=== PATIENT | female | born 1975 | race Caucasian/White ===

== ENCOUNTER 2023-02-26 16:21 | Emergency (ER) | payer MEDICARE, SELFPAY ==
[2023-02-26 16:22] VITALS: BP 150/79; PULSE 87; RESP 18; TEMP 36.3; O2SAT 100; BMI 30.2
--- NOTE | 2023-02-26 16:53 | EDS_ITS ---
HPI History of Present Illness Chief Complaint: Fatigue Narrative Narrative: 48-year-old female presenting with fatigue. 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 She states that she did tell her primary care physician about this and felt like she was having some sort of allergic reaction to the medication. She describes this as swelling all over. She was never evaluated. She did have some blood work done at the beginning of November prior to stopping the medication and her TSH, T4 was normal. She also states that she has a history of iron deficiency anemia. She states that over the last 2 weeks she is tried to call her primary care physician Dr. Montgomery. Her primary care is in [place]. She gets her blood work done through [facility]. She states she just wanted to get blood work checked today because she was in town working. She states that she does actually have Synthroid left and a refill but has not opted to just start taking it again. [facility] Medical History Anemia Cystic mastopathy Lenin's disease Physical exam, pre-employment Home Medications NK 02/26/23 [History Last Taken Unknown] Surgical History History of augmentation of both breasts Social History Smoking Status: Never smoker ROS ROS ED ROS Narrative Generalized fatigue Constitutional Constitutional ED: Denies chills, fever(s) or sweats Eyes Eyes: Denies blurry vision or change in vision ENT ENT ED: Denies ear pain or sore throat Cardiovascular Cardiovascular: Denies chest pain, palpitations or racing heartbeat Respiratory/Chest Respiratory/Chest: Denies cough, dyspnea or sputum Gastrointestinal Gastrointestinal: Denies abdominal pain, constipation, diarrhea, nausea or vomiting Genitourinary Genitourinary ED: Denies dysuria, hematuria or urinary frequency Musculoskeletal Musculoskeletal: Denies arthralgias, myalgias or neck pain Integumentary Denies abscess, Abrasions or rash Neurologic Neurologic: Denies headache(s), paresthesias or weakness Psychiatric Psychiatric: Denies anxiety, depression, suicidal ideation or suicidal thoughts Endocrine Endocrinology: Denies polydipsia or polyuria EXAM Physical Exam Const Vital Signs: 02/26/23 16:22 02/26/23 16:30 Temperature 97.4 F L Temperature Source Temporal Pulse Rate 87 Respiratory Rate 18 Respiratory Effort Normal Non-Labored Blood Pressure 150/79 H Blood Pressure Mean 102 Pulse Ox 100 Oxygen Delivery Method Room Air Positive well nourished General Appearance ED: NAD; Negative for pallor HEENT Reports moist mucous membranes Eyes PERRL and EOMs intact bilaterally General Eye ED: Negative for pale conjunctiva or scleral icterus Resp normal respiratory effort and clear to auscultation bilaterally Auscultation: Negative for rales, rhonchi or wheezes Cardio regular rate and regular rhythm Neuro oriented x3 and CN's II-XII intact bilaterally Sensorium / Orientation: alert Psych mental status grossly normal Skin no rashes or lesions noted and no wounds General Skin Exam: Negative for jaundice or pallor MDM MDM MDM Narrative Medical decision making narrative: Patient presenting for generalized fatigue. She is well-appearing with normal vital signs. She states she had Synthroid but stopped taking it because she was concerned about some swelling all over. She has not seen her primary care physician because she states the primary has not called her back. She states she has refills of the Synthroid and would restart it if her levels were low. She also states she has a history of chronic iron deficiency anemia. CBC to assess white blood cell count, hemoglobin, platelet, differential. CMP to assess liver function, renal function, glucose, electrolytes, anion gap. TSH, T3, T4 to assess thyroid levels. hCG was assess for . Urinalysis will be obtained as well due to patient's fatigue. CBC shows a normal hemoglobin of 13.3, hematocrit 40.0, platelets 286. White blood cell count normal at 7.4. Renal function and electrolytes within normal limits with exception of potassium 3.4. LFTs are normal. TSH is elevated at 4.81 however T3 and T4 are normal. hCG is negative. Urinalysis negative for infection. I recommended to the patient that she restart her Synthroid. She is to follow-up with her primary care physician as an outpatient. Return precautions are discussed. Impression: 1. Generalized weakness 2. Medical noncompliance 3. History of Lenin's Lab Data Attestation: I reviewed the patient's lab results. Labs: Laboratory Results - last 24 hr 02/26/23 02/26/23 02/26/23 16:50 16:50 16:50 WBC 7.4 RBC 4.20 Hgb 13.3 Hct 40.0 MCV 95.2 MCH 31.7 MCHC 33.3 RDW Std Deviation 45.2 H RDW Coeff of Phill 13.1 Plt Count 286 MPV 10.8 Immature Gran % (Auto) 0.300 Neut % (Auto) 60.1 Lymph % (Auto) 30.8 [place] % (Auto) 6.3 Eos % (Auto) 1.8 Baso % (Auto) 0.7 Absolute Neuts (auto) 4.4 Absolute Lymphs (auto) 2.27 Nucleated RBC % 0 Sodium 139 Potassium 3.4 L Chloride 104 Carbon Dioxide 26.0 Anion Gap 9 BUN 7 Creatinine 0.72 Estim Creat Clear Calc 84.31 Est GFR (MDRD) Af Amer 113 Est GFR (MDRD) Non-Af 93 BUN/Creatinine Ratio 9.7 L Glucose 101 Calcium 9.1 Total Bilirubin 0.70 AST 26 ALT 26 Alkaline Phosphatase 65 Total Protein 7.9 Albumin 4.0 Globulin 3.9 Albumin/Globulin Ratio 1.0 TSH 4.81 H Free T4 0.88 Free T3 pg/dL 2.5 HCG, Quant < 1 Urine Color Urine Clarity Urine pH Ur Specific [place] Urine Protein Urine Glucose (UA) Urine Ketones Urine Occult Blood Urine Nitrite Urine Bilirubin Urine Urobilinogen Ur Leukocyte Esterase Urine RBC Urine WBC Ur Squamous Epith Cells Amorphous Sediment Urine Bacteria Urine Mucus 02/26/23 16:55 WBC RBC Hgb Hct MCV MCH MCHC RDW Std Deviation RDW Coeff of Phill Plt Count MPV Immature Gran % (Auto) Neut % (Auto) Lymph % (Auto) [place] % (Auto) Eos % (Auto) Baso % (Auto) Absolute Neuts (auto) Absolute Lymphs (auto) Nucleated RBC % Sodium Potassium Chloride Carbon Dioxide Anion Gap BUN Creatinine Estim Creat Clear Calc Est GFR (MDRD) Af Amer Est GFR (MDRD) Non-Af BUN/Creatinine Ratio Glucose Calcium Total Bilirubin AST ALT Alkaline Phosphatase Total Protein Albumin Globulin Albumin/Globulin Ratio TSH Free T4 Free T3 pg/dL HCG, Quant Urine Color Yellow Urine Clarity Sl. Cloudy Urine pH 7.0 Ur Specific [place] 1.015 Urine Protein 15 H Urine Glucose (UA) Normal Urine Ketones Negative Urine Occult Blood 10 H Urine Nitrite Negative Urine Bilirubin Negative Urine Urobilinogen Normal Ur Leukocyte Esterase Negative Urine RBC 0-5 SEEN Urine WBC 0 SEEN Ur Squamous Epith Cells 0-5 SEEN Amorphous Sediment 1+ PHOS Urine Bacteria 0 SEEN Urine Mucus 0 SEEN Discharge Plan Triage Chief Complaint: Fatigue ED Provider: Amrit Ray Dx/Rx/DC Orders Instructions: ED Weakness (Uncertain Cause) Prescriptions: No Action NK Primary Care Provider: Isha Burris Referrals: Isha Burris MD [Primary Care Provider] - Disposition Disposition: Home, Self Care
[2023-02-26 17:00] LABS: Bacteria 0 SEEN /hpf (None Seen); Mucous, Urine 0 SEEN /hpf (<or=2+); White Blood Cells 0 SEEN /hpf (0-5)
[2023-02-26 17:01] LABS: Absolute Lymphocyte Count 2.27 X10^3/uL (0.83-4.51); Absolute Neutrophil Count 4.4 X10^3/uL (2.0-7.7); Basophil# 0.05 X10^3/uL; Basophil% 0.7 % (0-1); Eosinophil# 0.13 X10^3/uL; Eosinophils% 1.8 % (0-5); Hemoglobin 13.3 g/dL (12.0-15.0); Lymphocyte # 2.27 X10^3/ul (0.83-4.51); Lymphocyte % 30.8 % (19-41); Mean Corp Hgb Conc 33.3 g/dL (32-36); Mean Corpuscular Hgb 31.7 pg (27.0-32.0); Mean Corpuscular Volume 95.2 fL (81-99); Mean Platelet Vol. 10.8 fl (6.2-12.0); Monocyte# 0.46 X10^3/uL; Monocyte% 6.3 % (0-10); NRBC Flagged by Analyzer 0 % (0-5); Neutrophil # 4.43 X10^3/uL (2.7-7.7); Neutrophil % 60.1 % (47-70); Platelet Count 286 K/mm3 (150-450); RBC Distribution Width CV 13.1 % (11.6-14.6); RBC Distribution Width SD 45.2 fl (35.1-43.9); White Blood Count 7.4 K/mm3 (4.4-11.0)
[2023-02-26 17:05] LABS: Color, Urine Yellow (Yellow); Glucose, Dipstick Normal (Normal); Ketone-Dipstick Negative (Negative); Leukocyte Esterase-Dipstick Negative /ul (Negative); Nitrite-Dipstick Negative (Negative); Occult Blood-Urine 10 /ul (Negative); Protein-Dipstick 15 mg/dl (Negative); Specific Gravity, Urine 1.015 (1.002-1.030); Urine Bilirubin Dipstick Negative (Negative); Urine Clarity Sl. Cloudy (Clear); Urine Urobilinogen Normal (Normal)
[2023-02-26 17:16] LABS: Amorphous Sediment 1+ PHOS; Red Blood Cells-Urine 0-5 SEEN /hpf (0-5); Squamous Epithelial Cells - UA 0-5 SEEN /hpf (5-10)
[2023-02-26 17:22] LABS: hCG Titer Quant., Serum < 1 mIU/mL (1-3)
[2023-02-26 17:27] LABS: AST(SGOT) 26 U/L (15-37); Alanine Aminotransfer ALT/SGPT 26 U/L (13-56); Alkaline Phosphatase 65 U/L (45-117); Anion Gap 9 (5-15); BUN 7 mg/dL (7-18); BUN/Creat Ratio 9.7 RATIO (10-20); Calcium,Total 9.1 mg/dL (8.5-10.1); Chloride 104 mmol/L (98-107); Creatinine, Serum 0.72 mg/dL (0.55-1.02); EST Glomerular Filtration Rate 93 mL/min (>60); Est Glom Filt Rate - Afr Amer 113 mL/min (>60); Estimated Creatinine Clearance 84.31 ml/min; Free T3 2.5 pg/mL (2.18-3.98); Globulin 3.9 g/dL (2.2-4.2); Glucose 101 mg/dL (74-106); Potassium 3.4 mmol/L (3.5-5.1); Protein, Total 7.9 g/dL (6.4-8.2); Sodium Level 139 mmol/L (136-145); T4 Free Direct 0.88 ng/dL (0.76-1.46); Thyroid Stim Hormone (TSH) 4.81 uIU/mL (0.358-3.74)
== END 2023-02-26 17:52 | disposition home or self-care (01) ==
PROVIDERS: Emergency Provider Student in an Organized Health Care Education/Training Program; PCP Student in an Organized Health Care Education/Training Program; Visit Provider Student in an Organized Health Care Education/Training Program
DX: R53.1 Weakness (principal); R53.83 Other fatigue; Z91.199 Patient's noncompliance with other medical treatment and regimen due to unspecified reason; E06.3 Autoimmune thyroiditis; Z79.899 Other long term (current) drug therapy; Z86.2 Personal history of diseases of the blood and blood-forming organs and certain disorders involving the immune mechanism
CPT/HCPCS: 80053; 81001; 84439; 84443; 84481; 84702; 85025; 99283; A4216

== ENCOUNTER 2024-01-14 14:12 | Emergency (ER) | payer OTHER, MEDICARE, SELFPAY ==
[2024-01-14 14:13] VITALS: BP 139/90; PULSE 86; RESP 16; TEMP 36.6; O2SAT 100; BMI 28.0
--- NOTE | 2024-01-14 14:32 | EX.ED.GENINJ ---
HPI History of Present Illness Chief Complaint: Bite Informant: patient Narrative Narrative: Referred here [facility] for rabies treatment. 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 Cat a few days later. Specimen has been sent off for testing however as of today it has not been tested. Patient was seen at [facility] day 4 of Augmentin. Wound healing appropriately. She is feeling mild myalgias. No fevers. She has not had rabies vaccination in the past. Her tetanus 2022. [facility] Medical History Anemia Cystic mastopathy Lenin's disease Physical exam, pre-employment Home Medications NK 02/26/23 [History Last Taken Unknown] Allergy/AdvReac Type Severity Reaction Status Date / Time No Known Allergies Allergy Verified 01/14/24 14:16 Surgical History History of augmentation of both breasts Social History Smoking Status: Never smoker ROS ROS ED Constitutional Constitutional ED: Denies chills, fever(s) or sweats Eyes Eyes: Denies change in vision ENT ENT ED: Denies dysphagia or sore throat Cardiovascular Cardiovascular: Denies chest pain, leg edema, palpitations or racing heartbeat Respiratory/Chest Respiratory/Chest: Denies cough, dyspnea or dyspnea on exertion Gastrointestinal Gastrointestinal: Denies abdominal pain, diarrhea, nausea or vomiting Genitourinary Genitourinary ED: Denies dysuria, hematuria or urinary frequency Musculoskeletal Musculoskeletal: Reports myalgias; Denies back pain, extremity pain or neck pain Integumentary Denies rash or wounds Neurologic Neurologic: Denies headache(s), paresthesias or weakness EXAM Physical Exam Const Vital Signs: 01/14/24 14:13 01/14/24 15:33 Temperature 97.8 F 98.7 F Temperature Source Temporal Pulse Rate 86 77 Respiratory Rate 16 18 Blood Pressure 139/90 H 137/60 H Blood Pressure Mean 106 85 Pulse Ox 100 97 Oxygen Delivery Method Room Air Positive well nourished and well developed General Appearance ED: well developed and NAD HEENT Reports moist mucous membranes normocephalic and atraumatic Eyes PERRL, EOMs intact bilaterally and conjunctivae normal General Eye ED: Yes normal appearance of both eyes Neck no lymphadenopathy and supple General: Negative for tenderness Chest Wall Chest: Negative for tenderness Resp normal respiratory effort and normal air movement Effort and Inspection: symmetric chest movement; Negative for respiratory distress Cardio regular rate, regular rhythm and no murmurs Peripheral Pulses: pulses 2+ throughout GI normal to inspection, nondistended, normoactive bowel sounds and non-tender Palpation: Negative for guarding or rebound tenderness present Back/Spine no CVA tenderness and no thoracic nor lumbar tenderness Extremity normal to inspection General Extremety ED: Negative for edema or tenderness General Extremity: Negative for edema Neuro oriented x3 and no sensory deficits noted Sensorium / Orientation: awake and alert Skin Skin Narrative: Left index finger linear scab at the base of the nail. There is no surrounding erythema. No streaking. No swelling. MDM MDM MDM Narrative Medical decision making narrative: Interventions / MDM: Differential diagnosis: Cat bite, rabies vaccination Diagnosis considered but do not suspect: No current clinical cellulitis My EKG interpretation: N/A Imaging independently reviewed and interpreted by myself: N/A External documents reviewed: N/A Test considered but not ordered:N/A ED course: Vital stable no current signs of infection. Day 4 from injury, specimen is still pending for testing per patient report. Will initiate immunoglobulin and vaccination. Discussed with the patient if results come back negative she will not need to continue the vaccination. Discussed days 0, 3, 7, 14 or 21 for 4 treatments if needed to finish. Re-evaluation: stable Disposition discussed with patient/family/significant other: Patient Case discussed with consulting clinician: N/A This note was generated with [employer] dictation software. It may contain incorrect words, spelling, and punctuation that were not noted in checking the note before signing. Discharge Plan Triage Chief Complaint: Bite ED Provider: Eran Camacho Dx/Rx/DC Orders Clinical Impression: Cat bite, Need for rabies vaccination Instructions: ED Cat Bite Prescriptions: No Action NK Primary Care Provider: Isha Burris Referrals: Isha Burris MD [Primary Care Provider] - Activity Restrictions/Additional Instructions: Finish your Augmentin for at least 5 days total. No signs of infection. Rabies immunoglobulin given. Vaccination started. If no results of specimen will need day 3, day 7, day 14 or 21 Of vaccination. Disposition Disposition: Home, Self Care Discharge Date/Time: 01/14/24 15:39
[2024-01-14] MEDS: Rabies Vaccine,Human Diploid 2.5 UNITS Vial IM (15:02)
[2024-01-14] MEDS: Rabies Immune Globulin/PF 300 UNIT/ML, 5 ML VIAL 1480 UNIT IM (15:03)
[2024-01-14 15:33] VITALS: BP 137/60; PULSE 77; RESP 18; TEMP 37.1; O2SAT 97
--- NOTE | 2024-01-16 18:54 | ED.RN ---
PT CALLED TO INFORM US OF THAT THE RABIES TEST ON THE ANIMAL CAME BACK NEGATIVE, SHE WILL NOT BE FINISHING THE RABIES SERIES
== END 2024-01-14 15:39 | disposition home or self-care (01) ==
PROVIDERS: Emergency Provider Emergency Medicine; PCP Student in an Organized Health Care Education/Training Program; Visit Provider Emergency Medicine
DX: S61.251A Open bite of left index finger without damage to nail, initial encounter (principal); W55.01XA Bitten by cat, initial encounter; Y99.0 Civilian activity done for income or pay; Z23 Encounter for immunization
CPT/HCPCS: 90675; 96372; 99284; 90375

== ENCOUNTER 2024-09-01 09:30 | Outpatient (RCR) | payer MEDICARE, SELFPAY ==
--- NOTE | 2024-08-24 09:03 | HP.PTEVAL_ITS ---
Patient's Visit Information Visit Information Visit Information: TIM DEE is a 49 year old F referred to Physical Therapy by Dr. Pierce Pathak MD with a diagnosis of L knee pain. Date of Evaluation: 08/24/24 Physical Therapist: GUERDA Vasquez Visit Plan Frequency: 2x /Week Duration: 4 Weeks Plan: 2X/ week for 4 weeks for stretching of gastroc, hamstring and hip flexor, Squat mechanics, strength of hip extensors and core with HEP Subjective Subjective: Pt reports that she has pain in B knees but had a shot in her L knee. This started about 1 year ago. She had no injury. She had an MRI on the L. She had some patellar issues. The Dr said she is a candidate to have a surgery and she was not keen on surgery. She is on her 4th cortisone shot. Her shots do not last long and it range from 3-6 months. Her last cortisone shot around the end of June. Her current symptoms is that she gets sharp pain medial knee and on the top of her knee and it feels like something is pulling sometimes and wants to give out. It has not given out on her but she has times where she can not put weight on her L knee. She has had cortisone shots in her R knee as well. Stairs: she can go up with her leg and go recip. She is able to work out and squat and kettle harris. She hurts mostly while she is working out. She can feel her knee moving when she works out. She will wake up with sharp pain when she does not have the cortisone shot or a lot of feet muscle cramps. She notices that her ankles are starting to be affected as well. She has episodes of not being able to walk on her L knee but the cortisone helps so she can walk on it. Pain L knee pain: Pain Intensity (Out of 10): 0 Pain Intensity Range: 7 R knee pain: Pain Intensity (Out of 10): 0 Objective Objective: Gait: Walks with decrease stride length but overall normal gait pattern She is able to walk on heels and toes without any pain in knees Tight Hamstrings and gastroc B LE MMT: B hip abd 4+/5 and Hip flex 4/5 and hip ext 4/5 B, knee ext 4/5 B, knee flex 4/5 B OHS: knees over toes slightly, forefoot abduction, flexed trunk +Crepitus in B knees with wall slides Balance/Special Test Scores Lower Extremity Functional Score: 11 Goals Goal 1:: I HEP Goal Time Frame: 4-6 Weeks Goal 2:: Be able to show good squat form with no pain Goal Time Frame: 4-6 Weeks Goal 3:: Increase gastroc flexibility to be able to squat without forefoot abduction Goal Time Frame: 4-6 Weeks Rehabilitation Potential Rehabilitation Potential: Good Anticipated Interventions Patient/Client Instruction: Educate patient on: Condition and Plan of Care For the Purpose of:: To decrease pain, To decrease swelling/inflammation, To increase ROM, To improve nutrient delivery to tissue, To increase tolerance to activity/condition/position, To improve performance and independence with ADL's, To decrease level of supervision to perform tasks, To improve ability of physical actions for home/community/work/leisure, To improve gait and locomotor functions, To improve health of tissue and To increase flexibility/ROM Therapeutic Exercise to Include: Strength training, Endurance training, Flexibilty training, Gait and locomotor training, Neuromotor development, Active ROM and Dynamic Lumbar Stabilization For the Purpose of:: To decrease pain, To increase ROM, To improve nutrient deli very to tissue, To improve muscle performance and motor function, To improve ability to perform ADL's, To increase tolerance to activity/condition/position, To improve performance and independence with ADL's, To decrease level of supervision to perform tasks, To improve ability of physical actions for home/community/work/leisure, To improve gait and locomotor functions, To improve health of tissue, To decrease soft tissue restriction, To increase flexibility/ROM and To improve endurance Text: Thank you for the opportunity to evaluate your patient. For Medicare and Medicare HMO plans, please review the plan of care and approve it. It will need to be FAXED BACK to us at [phone] for Medicare purposes. For Medicare only, by signing this I certify the plan of care. Please let me know if there are questions or concerns regarding this plan of care. Physician Signature: Da te:
--- NOTE | 2024-10-06 09:45 | HP.PT.NRP ---
Patient Information Patient Information: TIM DEE was seen in my office for initial evaluation on 08/24/24. The following Plan of Care was established for this patient: POC Established Initial Frequency: 2x /Week Initial Duration: 4 Weeks Anticipated Interventions Patient/Client Instruction: Educate patient on: Condition and Plan of Care For the Purpose of:: To decrease pain, To decrease swelling/inflammation, To increase ROM, To improve nutrient delivery to tissue, To increase tolerance to activity/condition/position, To improve performance and independence with ADL's, To decrease level of supervision to perform tasks, To improve ability of physical actions for home/community/work/leisure, To improve gait and locomotor functions, To improve health of tissue and To increase flexibility/ROM Therapeutic Exercise to Include: Strength training, Endurance training, Flexibilty training, Gait and locomotor training, Neuromotor development, Active ROM and Dynamic Lumbar Stabilization For the Purpose of:: To decrease pain, To increase ROM, To improve nutrient delivery to tissue, To improve muscle performance and motor function, To improve ability to perform ADL's, To increase tolerance to activity/condition/position, To improve performance and independence with ADL's, To decrease level of supervision to perform tasks, To improve ability of physical actions for home/community/work/leisure, To improve gait and locomotor functions, To improve health of tissue, To decrease soft tissue restriction, To increase flexibility/ROM and To improve endurance Last Seen Last Seen: This patient was last seen in our office 08/31/24. Pertinent comments regarding their Physical therapy will appear below: PATR[facility] PT. Pt reports that her insurance is changing At this point I will be discontinuing this patient from physical therapy. I would be happy to see this patient again in the future if found appropriate by the physician. Thank you! Yue Flynn, MPT Balance/Gait/Functional tests Balance/Special Test Scores Lower Extremity Functional Score: 11
== END 2024-09-01 19:00 | disposition home or self-care (01) ==
LOC: PT 09:30
PROVIDERS: PCP Student in an Organized Health Care Education/Training Program; Referring Provider Orthopaedic Surgery Sports Medicine; Visit Provider Orthopaedic Surgery Sports Medicine
DX: M25.562 Pain in left knee (principal)
CPT/HCPCS: 97110; 97161